=== PATIENT | female | born 1990 | race Caucasian/White ===

== ENCOUNTER 2019-05-07 07:14 | Emergency (ER) | payer BC, SELFPAY ==
[2019-05-07 07:16] VITALS: BP 127/88; PULSE 114; RESP 18; TEMP 36.6; O2SAT 100; BMI 16.6
--- NOTE | 2019-05-07 07:22 | ED_ITS ---
HPI - Nausea/Vomiting/Diarrhea General: Chief complaint: Nausea/Vomiting/Diarrhea Stated complaint: and cannot keep food/ water down Time Seen by Provider: 05/07/19 07:16 Source: patient Mode of arrival: ambulatory Limitations: no limitations History of Present Illness: HPI Narrative: 29-year-old female comes in today for complaints of nausea and vomiting. This is patient's second with 1 successful delivery. Patient reports persistent vomiting that was not controlled with promethazine. Patient has had problems with vomiting during her first . Patient is 8 weeks along in this . Patient denies any other medical problems or concerns. Associated nausea: Yes Associated symtoms: Reports nausea Review of Systems General: Reports: 10 or more systems reviewed and unremarkable except in HPI and below GI: Reports: nausea and vomiting : Reports: vaginal discharge and other (8 weeks ) PFSH ED PFSH: Statuses (acute, chronic, etc) shown below reflect problem list status as previously entered and may not be historically accurate Social History Smoking and tobacco status: never smoked Physical Exam Const: COMMON NORMALS: no apparent distress and oriented x3 GENERAL APPEARANCE: cooperative HENMT: COMMON NORMALS: normocephalic, external ears normal, EAC's normal, TM's normal bilaterally and external nose normal HEAD & SCALP: normal to inspection and normocephalic FACE & SINUS: normal facial exam NOSE: external nose normal GENERAL EAR: hearing not grossly impaired EXTERNAL EAR: Yes external ears normal EXTERNAL AUDITORY CANAL: EAC's normal TYMPANIC MEMBRANE: TM's normal bilaterally MOUTH: oral and palatal mucosa normal THROAT: posterior oropharynx normal Eye: COMMON NORMALS: PERRL and EOMs intact bilaterally PUPIL: Yes PERRL Neck/C-Spine: COMMON NORMALS: full ROM and no lymphadenopathy Lymph: LYMPHATIC: no lymphedema noted Chest: COMMONS NORMALS: inspection of chest normal and palpation of chest normal Resp: COMMON NORMALS: normal respiratory effort and clear to auscultation bilaterally AUSCULTATION: clear to auscultation bilaterally Cardio: COMMON NORMALS: regular rate and regular rhythm RATE: regular rate RHYTHM: regular rhythm GI: COMMON NORMALS: normal to inspection, nondistended, normoactive bowel sounds and non-tender : COMMON NORMALS: Yes no CVA tenderness BLADDER/KIDNEY EXAM: Yes no CVA tenderness EXTERNAL FEMALE EXAM: Yes normal appearance of the urethra SPECULUM EXAM - VAGINA: No vaginal bleeding and Yes vaginal tenderness OB/EXTERNAL & SPECULUM: external exam normal; No vaginal bleeding Back/Pelvis: COMMON NORMALS: no CVA tenderness and thoracic and lumbar spine normal to inspection Extremity: COMMON NORMALS: normal to inspection GENERAL: No edema Neuro: COMMON NORMALS: oriented x3, moves all extremities and no focal motor deficits Psych: COMMON NORMALS: mental status grossly normal and cooperative Skin: COMMON NORMALS: no rashes or lesions noted GENERAL SKIN EXAM: no rashes or lesions noted Course ED course: 816, patient has some improvement in nausea and vomiting, requests medication for anxiety, continues to have some nausea. wjw 0905, patient appears much better with improved anxiety, and over all symptoms. Discussed with patient elevated WBC count, patient reports that she has an elevated wbc count usually that has been linked with HPV that she was told. wjw 0915, RH typing negative, due to vaginal discharge and blood in urine will cover with Rhogam for protection of . Discussed treatment with Antibiotic for cystitis due to blood in urine and leukocytosis. wjw Vital Signs: Vital signs: Vital Signs Temperature 97.9 F 05/07/19 07:16 Pulse Rate 89 05/07/19 10:37 Respiratory Rate 16 05/07/19 10:37 Blood Pressure 106/65 05/07/19 10:37 Pulse Oximetry 100 05/07/19 10:32 MDM - Nausea/Vomiting/Diarrhea MDM Narrative: Medical decision making narrative: Patient comes in today for persistent nausea and vomiting for the last 2 to 3 days. Patient is 8 weeks. Patient is worried that she may be losing her baby due to previous similar instance in a previous miscarriage. Exam notes abdomen soft nontender skin is warm and dry color is pink. Vaginal exam was normal. No signs of bleeding was noted. Differential diagnosis includes threatened , hyperemesis gravidarum, dehydration, UTI, gastroenteritis. Laboratory values signified some elevation in white blood cells, dehydration, and negative Rh typing. Patient was treated with medication and fluids with improvement in overall symptoms. Patient was medicated with RhoGam for Rh typing and positive blood in urine and vaginal swabs. 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 Lab Data: Labs: Lab Results 05/07/19 05/07/19 05/07/19 Range/Units 07:30 07:30 08:25 WBC 25.5 H (4.0-10.0) 10^3/ uL RBC 5.04 (4.1-5.3) 10^6/u L Hgb 14.2 (11.5-15.3) g/dL Hct 43.5 (37.0-47.0) % MCV 86.3 (81-99) fL MCH 28.2 (28.0-34.0) pg MCHC 32.6 (30.0-36.0) g/dL RDW 12.1 (12.1-15.1) % Plt Count 578 H (130-400) 10^3/c mm MPV 10.2 (7.4-10.4) fL Neut % (Auto) 83.1 % Lymph % (Auto) 10.4 % Kimble % (Auto) 5.0 % Eos % (Auto) 0.7 % Baso % (Auto) 0.2 % Neut # (Auto) 21.2 H (1.8-7.7) 10^3/u L Lymph # (Auto) 2.7 (0.8-4.8) 10^3/u L Kimble # (Auto) 1.3 H (0.2-0.9) 10^3/u L Eos # (Auto) 0.2 (0.0-0.8) 10^3/u L Baso # (Auto) 0.0 (0.0-0.1) 10^3/u L Nucleated RBC % (a uto) 0 % Nucleated RBCs # 0.0 /100WBC Sodium 139 (136-145) mmol/L Potassium 3.7 (3.5-5.1) mmol/L Chloride 103 (98-107) mmol/L Carbon Dioxide 21 L (22-29) mmol/L Anion Gap 18.7 (5-19) BUN 6 (6-20) mg/dL Creatinine 0.5 (0.5-0.9) mg/dL GFR Calculation 144.9 H (90-130) mL/min Glucose 137 H (74-109) mg/dL Calcium 10.5 H (8.6-10.0) mg/Dl Total Bilirubin 0.5 (0.15-1.2) mg/dL AST 27 (0-32) U/L ALT 30 (0-33) U/L Alkaline Phosphata se 82 (35-105) IU/L Total Protein 7.3 (6.6-8.7) g/dL Albumin 5.0 (3.5-5.2) g/dL Globulin 2.3 (1.3-4.6) g/dL Lipase 19 (13-60) U/L Urine Color Yellow (Yellow) Urine Appearance Clear (CLEAR) Urine pH 6.5 (5-7) Ur Specific Gravit y 1.020 (1.005-1.030) Urine Protein 1+ H (Negative) Urine Glucose (UA) Norm (Normal) Urine Ketones 1+ H (Negative) Urine Occult Blood 2+ H (Negative) Urine Nitrate Negative (Negative) Urine Bilirubin Neg (NEGATIVE) Urine Urobilinogen Norm (Negative) mg/dL Ur Leukocyte Xiao ase Negative (Negative) Urine RBC 0-4 H (0-2) /hpf Urine WBC None (0-5) /hpf Ur Squamous Epith Cells 15-25 H (0-5) Urine Bacteria 2+ H (NONE) Blood Type Antibody Screen 05/07/19 05/07/19 Range/Units 08:29 08:29 WBC (4.0-10.0) 10^3/ uL RBC (4.1-5.3) 10^6/u L Hgb (11.5-15.3) g/dL Hct (37.0-47.0) % MCV (81-99) fL MCH (28.0-34.0) pg MCHC (30.0-36.0) g/dL RDW (12.1-15.1) % Plt Count (130-400) 10^3/c mm MPV (7.4-10.4) fL Neut % (Auto) % Lymph % (Auto) % Kimble % (Auto) % Eos % (Auto) % Baso % (Auto) % Neut # (Auto) (1.8-7.7) 10^3/u L Lymph # (Auto) (0.8-4.8) 10^3/u L Kimble # (Auto) (0.2-0.9) 10^3/u L Eos # (Auto) (0.0-0.8) 10^3/u L Baso # (Auto) (0.0-0.1) 10^3/u L Nucleated RBC % (a uto) % Nucleated RBCs # /100WBC Sodium (136-145) mmol/L Potassium (3.5-5.1) mmol/L Chloride (98-107) mmol/L Carbon Dioxide (22-29) mmol/L Anion Gap (5-19) BUN (6-20) mg/dL Creatinine (0.5-0.9) mg/dL GFR Calculation (90-130) mL/min Glucose (74-109) mg/dL Calcium (8.6-10.0) mg/Dl Total Bilirubin (0.15-1.2) mg/dL AST (0-32) U/L ALT (0-33) U/L Alkaline Phosphata se (35-105) IU/L Total Protein (6.6-8.7) g/dL Albumin (3.5-5.2) g/dL Globulin (1.3-4.6) g/dL Lipase (13-60) U/L Urine Color (Yellow) Urine Appearance (CLEAR) Urine pH (5-7) Ur Specific Gravit y (1.005-1.030) Urine Protein (Negative) Urine Glucose (UA) (Normal) Urine Ketones (Negative) Urine Occult Blood (Negative) Urine Nitrate (Negative) Urine Bilirubin (NEGATIVE) Urine Urobilinogen (Negative) mg/dL Ur Leukocyte Xiao ase (Negative) Urine RBC (0-2) /hpf Urine WBC (0-5) /hpf Ur Squamous Epith Cells (0-5) Urine Bacteria (NONE) Blood Type A Negative A Negative Antibody Screen Negative Imaging Data^: US: My impression: normal us pelvic, FHR 167, gest estimate 8wks 6 days Radiologist's impression: single uterine , FHR 167, est. gestation 8wks 6 days Discharge Plan Discharge Patient Disposition: Home, Self-Care Clinical Impression: Hyperemesis gravidarum, Dehydration, Vaginal bleeding in patient at less than 20 weeks gestation Condition: Stable Prescriptions: New meclizine 25 mg tablet 25 mg PO TID Qty: 30 RF: 0 ondansetron 4 mg tablet,disintegrating 4 mg PO Q6H PRN (Reason: nausea and vomiting) Qty: 14 RF: 0 Bactrim DS 800-160 mg tablet 1 tab PO Q12H 7 Days Qty: 14 RF: 0 No Action 28 mg iron- 800 mcg Tablet 1 tab PO DAILY RF: 0 Discharge Orders: Discharge Order (Routine); Ordered 05/07/19 Ordered By: Elver Bonilla Referrals: Leana Pace DO [Primary Care Provider] - Discharge Diet: Usual diet Discharge Activity: Increase activity as tolerated Patient Instructions: Hyperemesis Gravidarum (ED) Activity Restrictions/Additional Instructions: Keep hydrated Drink sips of fluid routinely Light diet Avoid spicy, greasy or acidic foods Follow-up with OB-ELECTRIC FREIGHT CAR OPERATOR in one week Return to ER for high fever or worsening symptoms Discharge Date/Time: 05/07/19 10:52 Coding Level of Care Code ED Account Liaison for Maite Garcia Exam Problem Focused
[2019-05-07] MEDS: metoclopramide 5 mg/mL SDV 2 mL 10 MG IVP (07:31)
[2019-05-07] MEDS: sodium chloride 0.9% 1,000 ML 999 ML IV (07:31)
[2019-05-07] MEDS: diphenhydrAMINE 50 mg/mL SDV 1mL 25 MG IVP (07:31)
[2019-05-07 08:03] LABS: Basophils % 0.2 %; Eosinophils # 0.2 10^3/uL (0.0-0.8); Eosinophils % 0.7 %; Hematocrit 43.5 % (37.0-47.0); Hemoglobin 14.2 g/dL (11.5-15.3); Lymphocytes # 2.7 10^3/uL (0.8-4.8); Lymphocytes % 10.4 %; Mean Corpuscular HGB Conc 32.6 g/dL (30.0-36.0); Mean Corpuscular Hemoglobin 28.2 pg (28.0-34.0); Mean Corpuscular Volume 86.3 fL (81-99); Mean Platelet Volume 10.2 fL (7.4-10.4); Monocytes # 1.3 10^3/uL (0.2-0.9); Neutrophils # 21.2 10^3/uL (1.8-7.7); Neutrophils % 83.1 %; Nucleated Red Blood Cells % 0 %; Platelet Count 578 10^3/cmm (130-400); Red Blood Count 5.04 10^6/uL (4.1-5.3); Red Cell Distribution Width 12.1 % (12.1-15.1); White Blood Count 25.5 10^3/uL (4.0-10.0)
--- NOTE | 2019-05-07 08:13 | US_ITS ---
WS: [id number] OB ultrasound, 05/07/2019 Clinical Data: viability, 8 weeks, vaginal discharge Comparison: OB ultrasound, 04/23/2019. Findings: There is a single interuterine . The cervix measures 3.70 cm and is closed. heart rate is 167 beats per minute. There is a yolk sac present. The crown-rump length measured 2.2 cm The estimated gestational age 8w6d is with an ALKA of approximately 12/11/2019. The left ovary measured 1.5 cm x 2.4 cm x 2.3 cm. The right ovary measured 1.2 cm x 2.4 cm x 3.1 cm. No ovarian cyst or masses are seen. US/US OB lmt with transvaginal Impression: 1. Single interuterine . 2. Estimated gestational age of 8w6d with an ALKA of 12/11/2019. 3. heart rate 167 beats per minute.
[2019-05-07 08:18] LABS: Alanine Aminotransferase 30 U/L (0-33); Alkaline Phosphatase 82 IU/L (35-105); Anion Gap 18.7 (5-19); Aspartate Amino Transferase 27 U/L (0-32); Blood Urea Nitrogen 6 mg/dL (6-20); Calcium 10.5 mg/Dl (8.6-10.0); Carbon Dioxide 21 mmol/L (22-29); Chloride 103 mmol/L (98-107); Globulin 2.3 g/dL (1.3-4.6); Glomerular Filtration Rate 144.9 mL/min (90-130); Glucose 137 mg/dL (74-109); Lipase 19 U/L (13-60); Potassium 3.7 mmol/L (3.5-5.1); Sodium 139 mmol/L (136-145); Total Bilirubin 0.5 mg/dL (0.15-1.2); Total Protein 7.3 g/dL (6.6-8.7)
[2019-05-07] MEDS: ondansetron 2 mg/ML SDV 2 mL 4 MG IVP (08:23)
--- NOTE | 2019-05-07 08:24 | PC.NURSE ---
Ultrasound in room with pt.
--- NOTE | 2019-05-07 08:27 | PC.NURSE ---
portable ultrasound at bedside
[2019-05-07] MEDS: LORazepam 0.5 mg Tablet 0.25 MG PO (08:30)
[2019-05-07 08:55] LABS: Bilirubin Urine Neg (NEGATIVE); Blood Urine 2+ (Negative); Glucose Urine UA Norm (Normal); Ketones Urine 1+ (Negative); Leukocyte Esterase Urine Negative (Negative); Nitrate Urine Negative (Negative); Protein Urine 1+ (Negative); Urine Appearance Clear (CLEAR); Urine Color Yellow (Yellow); Urobilinogen Urine Norm (Negative); pH Urine 6.5 (5-7)
[2019-05-07 09:02] LABS: Add Urine Culture? No; Bacteria Urine 2+; RBC Urine 0-4 /hpf (0-2); Squamous Epithelial Cell Urine 15-25 (0-5)
[2019-05-07 09:04] VITALS: BP 105/65; PULSE 85; O2SAT 99
--- NOTE | 2019-05-07 09:05 | PC.NURSE ---
nurse literacy coach PA for pelvic exam and vaginal swab collection. Whole time 15 minutes
[2019-05-07] MEDS: cefTRIAXone 1,000 MG in sodium chloride 0.9% (plus) 50 ML 100 MG IV (09:17)
[2019-05-07 10:23] VITALS: BP 107/72; PULSE 87; O2SAT 100
[2019-05-07 10:32] VITALS: BP 106/65; PULSE 91; O2SAT 100
[2019-05-07 10:37] VITALS: BP 106/65; PULSE 89; RESP 16
--- NOTE | 2019-05-10 15:01 | DCPLANNER ---
international manager had message to speak with patient about getting an OB physician. international manager spoke with patient, and patient asked if she could call caseworker intake back on her break due to her being at work. international manager is waiting for patient to return machine adjuster leader case trim phone call to discuss an OB physician.
== END 2019-05-07 10:52 | disposition home or self-care (01) ==
PROVIDERS: Emergency Provider Nurse Practitioner Family; Family Provider Family Medicine; PCP Family Medicine
DX: O21.1 Hyperemesis gravidarum with metabolic disturbance (principal); Z3A.08 8 weeks gestation of pregnancy; O20.9 Hemorrhage in early pregnancy, unspecified; Z29.13 Encounter for prophylactic Rho(D) immune globulin
CPT/HCPCS: 36415; 76815; 76817; 80053; 81001; 83690; 85025; 86850; 86900; 87070; 87210; 87491; 87591; 87661; 90384; 96360; 96365; 96374; 99283; A9270; E0352; J0696; J1200; J2405; J2765; J7030

== ENCOUNTER 2019-05-27 15:04 | Outpatient (CLI) | payer SELFPAY ==
[2019-05-27 15:15] VITALS: BMI 16.9
[2019-05-27] MEDS: dextrose 5%-lactated ringers 1,000 ML 999 ML IV (15:58)
[2019-05-27 16:00] VITALS: BP 114/65; PULSE 70; RESP 18; TEMP 36.8
[2019-05-27 16:31] VITALS: BP 116/68; PULSE 87
[2019-05-27 17:02] VITALS: BP 119/71; PULSE 86
[2019-05-27] MEDS: dextrose 5%-lactated ringers 1,000 ML 200 ML IV (17:12)
[2019-05-27 17:36] VITALS: BP 118/64; PULSE 85
[2019-05-27 18:01] VITALS: BP 122/68; PULSE 92
[2019-05-27 18:31] VITALS: BP 0/0
== END 2019-05-27 18:33 | disposition home or self-care (01) ==
LOC: OPOB 15:19 → OBGYN 18:20 → OPOB 05-28 08:58
PROVIDERS: Family Provider Family Medicine; PCP Family Medicine; Visit Provider Family Medicine
DX: O26.899 Other specified pregnancy related conditions, unspecified trimester (principal); Z3A.00 Weeks of gestation of pregnancy not specified; I95.9 Hypotension, unspecified
CPT/HCPCS: 96360; 96361; 99211

== ENCOUNTER 2019-06-01 21:48 | Emergency (ER) | payer MEDICAID, SELFPAY ==
[2019-06-01 22:12] VITALS: BP 126/66; PULSE 80; RESP 18; TEMP 36.8; O2SAT 99; BMI 16.2
--- NOTE | 2019-06-01 22:34 | ED_ITS ---
Entered by Rose Marie Haynes, acting as scribe for Marisa Villegas MD Jun 01, 2019 21:48 HPI - Abdominal Pain General: Chief Complaint: Abdominal Pain Stated Complaint: preg bleeding/cramping 13 weeks Time Seen by Provider: 06/01/19 22:32 Source: patient and family Mode of arrival: ambulatory History of Present Illness: HPI narrative: 29 y/o female presents to the ED with complaint of bleeding that started around 2130 this evening. Pt states she thinks she is having a miscarriage. Pt states this is her second . She had a miscarriage at 5 months with her first . She was seen here last week and given IV fluids due to low BP. MD elicited complaint: abdominal pain (bleeding) Pertinent past history: other (miscarriage) Onset (ago): hour(s) (1) Pain Consistency: constant Severity: similar to previous episodes Quality: cramping Exacerbating factors: movement Associated Symptoms: Denies chills, diarrhea, dysuria, fever(s), nausea and vomiting Review of Systems Const: Denies: fever, chills, body aches or change in appetite Eyes: Denies: blurry vision or eye discomfort ENMT: Denies: throat pain or dental pain Card: Denies: chest pain Resp: Denies: shortness of breath GI: Reports: abdominal pain; Denies: nausea, vomiting or diarrhea : Reports: vaginal bleeding; Denies: painful urination Musc: Denies: neck pain or back pain Skin/Breast: Denies: rash Neuro: Denies: headache Psych: Denies: depression Shane/Lymph: Denies: easy bruising All/Imm: Denies: hives PFSH ED PFSH: Statuses (acute, chronic, etc) shown below reflect problem list status as previously entered and may not be historically accurate Social History Smoking and tobacco status: never smoked Physical Exam Const: COMMON NORMALS: no apparent distress and oriented x3; negative for well nourished NUTRITIONAL APPEARANCE: thin HENMT: COMMON NORMALS: normocephalic and head/scalp atraumatic HEAD & SCAL P: normocephalic and atraumatic Eye: COMMON NORMALS: PERRL and EOMs intact bilaterally PUPIL: Yes PERRL Neck/C-Spine: COMMON NORMALS: full ROM and supple Chest: COMMONS NORMALS: inspection of chest normal and palpation of chest normal Resp: COMMON NORMALS: normal respiratory effort, no retractions, no use of accessory muscles and clear to auscultation bilaterally AUSCULTATION: clear to auscultation bilaterally Cardio: COMMON NORMALS: regular rate, regular rhythm and no murmurs RATE: regular rate RHYTHM: regular rhythm GI: COMMON NORMALS: normal to inspection, nondistended, normoactive bowel sounds, soft to palpation, non-tender and no masses PALPATION: Yes soft : OTHER: Cervix is closed. She does have moderate amount of blood pooling in vaginal vault. No clots noted Extremity: COMMON NORMALS: normal to inspection and full ROM Neuro: COMMON NORMALS: oriented x3, moves all extremities and no focal motor deficits Psych: COMMON NORMALS: mental status grossly normal, thought process normal and cooperative THOUGHT PROCESS: normal thought process Skin: COMMON NORMALS: no rashes or lesions noted and no wounds GENERAL SKIN EXAM: no rashes or lesions noted Course Vital Signs: Vital signs: Vital Signs Temperature 98.2 F 06/01/19 22:12 Pulse Rate 80 06/01/19 22:12 Respiratory Rate 18 06/01/19 22:12 Blood Pressure 126/66 06/01/19 22:12 Pulse Oximetry 99 06/01/19 22:12 MDM - Abdominal Pain MDM Narrative: Medical decision making narrative: Patient presents here with a threatened miscarriage. Patient's pelvic exam did show some bleeding but has cervical loss is close. Bedside ultrasound showed IUP consistent with dates with heart rate 152. Patient is stable for discharge and is to follow-up with her OB in 1 to 3 days. Patient is to return if worsening. She understands and agrees to plan. We will give her dose of RhoGam as her blood type is negative. Discharge Plan Discharge Patient Disposition: Home, Self-Care Clinical Impression: Threatened miscarriage Condition: Stable Prescriptions: No Action PNV cmb#[id number] fumarate-FA [] 28 mg iron- 800 mcg Tablet 1 tab PO DAILY RF: 0 meclizine 25 mg tablet 25 mg PO TID Qty: 30 RF: 0 ondansetron 4 mg tablet,disintegrating 4 mg PO Q6H PRN (Reason: nausea and vomiting) Qty: 14 RF: 0 Discharge Orders: Discharge Order (Routine); Ordered 06/01/19 Ordered By: Marisa Villegas Referrals: Bertha Beltran MD [Primary Care Provider] - 1-3 days Leana Pace DO [Family Provider] - Discharge Diet: Advance as tolerated Discharge Activity: Resume usual activity Patient Instructions: Threatened Miscarriage (ED) Coding Level of Care Code ED Shape Hand for Chg Fwd Exam Problem Focused The documentation recorded by the [place] rosales Ashley, accurately reflects the service I personally performed and the decisions made by Bakari reyes Korby, MD Jun 01, 2019 21:48
--- NOTE | 2019-06-01 22:58 | PC.NURSE ---
Patient Assessment Patient reports that she is 13 weeks and began bleeding at 2130. Patient reports moderate bright red bleeding. Patient is . Patient reports abdominal cramping.
[2019-06-02 00:02] VITALS: BP 102/63; PULSE 69; RESP 16; TEMP 36.7
[2019-06-02 00:07] VITALS: BP 105/71; PULSE 68; RESP 16; TEMP 36.8; O2SAT 97
== END 2019-06-02 00:09 | disposition home or self-care (01) ==
PROVIDERS: Emergency Provider Emergency Medicine; Family Provider Family Medicine; PCP Family Medicine
DX: O20.0 Threatened abortion (principal); Z3A.13 13 weeks gestation of pregnancy; Z29.13 Encounter for prophylactic Rho(D) immune globulin
CPT/HCPCS: 36430; 86850; 86900; 90384; 99281; 99283

== ENCOUNTER → 2019-07-28 14:35 | Outpatient (BNVA) | payer BC, SELFPAY | PROVIDERS: Family Provider Family Medicine; PCP Family Medicine; Visit Provider Family Medicine | DX: R05 Cough (principal); R50.9 Fever, unspecified | CPT/HCPCS: 87071; 87400; 87880 ==

== ENCOUNTER 2019-07-29 15:03 | Outpatient (REF) | payer BC, SELFPAY | END 2019-07-29 15:04 | disposition home or self-care (01) | LOC: LAB 15:03 | PROVIDERS: Family Provider Family Medicine; PCP Family Medicine; Visit Provider Pediatrics | DX: R05 Cough (principal); R50.9 Fever, unspecified; J02.9 Acute pharyngitis, unspecified | CPT/HCPCS: 87635 ==

== ENCOUNTER 2019-08-04 04:50 | Emergency (ER) | payer OTHER, MEDICAID, SELFPAY ==
[2019-08-04 04:58] VITALS: BP 102/43; PULSE 80; RESP 16; TEMP 36.9; O2SAT 98; BMI 17.9
--- NOTE | 2019-08-04 05:01 | ED_ITS ---
HPI - Nausea/Vomiting/Diarrhea General: Chief complaint: Nausea/Vomiting/Diarrhea Stated complaint: n/v Time Seen by Provider: 08/04/19 04:59 Source: patient Mode of arrival: ambulatory Limitations: no limitations History of Present Illness: HPI Narrative: 29-year-old female is currently 21 weeks has had hyperemesis gravidarum throughout her . Patient states she has had vomiting over the last 24 hours and states she is unable to keep anything down needs IV fluids. She denies any abdominal pain. She denies any vaginal bleeding. She denies any worsening or improving factors. MD elicited complaint: vomiting Associated nausea: Yes Associated symtoms: Reports nausea; Denies chest pain, dysuria or headache(s) Review of Systems Const: Denies: fever, chills, body aches or change in appetite Eyes: Denies: blurry vision or eye discomfort ENMT: Denies: throat pain or dental pain Card: Denies: chest pain Resp: Denies: shortness of breath GI: Reports: nausea and vomiting : Denies: painful urination Musc: Denies: neck pain or back pain Skin/Breast: Denies: rash Neuro: Denies: headache Psych: Denies: depression Shane/Lymph: Denies: easy bruising All/Imm: Denies: hives PFSH ED PFSH: Social History Smoking and tobacco status: never smoked Physical Exam Const: COMMON NORMALS: no apparent distress, oriented x3 and healthy appearing HENMT: COMMON NORMALS: normocephalic and head/scalp atraumatic HEAD & SCALP: normocephalic and atraumatic Eye: COMMON NORMALS: PERRL and EOMs intact bilaterally PUPIL: Yes PERRL Neck/C-Spine: COMMON NORMALS: full ROM and supple Chest: COMMONS NORMALS: inspection of chest normal and palpation of chest normal Resp: COMMON NORMALS: normal respiratory effort, no retractions, no use of accessory muscles and clear to auscultation bilaterally AUSCULTATION: clear to auscultation bilaterally Cardio: COMMON NORMALS: regular rate, regular rhythm and no murmurs RATE: regular rate RHYTHM: regular rhythm GI: COMMON NORMALS: normal to inspection, nondistended, normoactive bowel sounds, soft to palpation, non-tender and no masses PALPATION: Yes soft OTHER: gravid uterus Extremity: COMMON NORMALS: normal to inspection and full ROM Neuro: COMMON NORMALS: oriented x3, moves all extremities and no focal motor deficits Psych: COMMON NORMALS: mental status grossly normal, thought process normal and cooperative THOUGHT PROCESS: normal thought process Skin: COMMON NORMALS: no rashes or lesions noted and no wounds GENERAL SKIN EXAM: no rashes or lesions noted Course Vital Signs: Vital signs: Vital Signs Temperature 98.5 F 08/04/19 04:58 Pulse Rate 78 08/04/19 06:17 Respiratory Rate 16 08/04/19 06:17 Blood Pressure 118/72 08/04/19 06:17 Pulse Oximetry 99 08/04/19 06:17 MDM - Nausea/Vomiting/Diarrhea MDM Narrative: Medical decision making narrative: pt presents here with hyperemesis gravidarium. She feels much improved after iv fluids and reglan. pt is stable for discharge and is to follow up with pcp in 3-5 days and return if worsening. Lab Data: Labs: Lab Results 08/04/19 Range/Units 05:45 Urine Color Yellow (Yellow) Urine Appearance Turbid (CLEAR) Urine pH 7 (5-7) Ur Specific Gravit y 1.010 (1.005-1.030) Urine Protein Neg (Negative) Urine Glucose (UA) Norm (Normal) Urine Ketones Negative (Negative) Urine Blood Neg (Negative) Urine Nitrate Negative (Negative) Urine Bilirubin Neg (NEGATIVE) Urine Urobilinogen Norm (Negative) mg/dL Ur Leukocyte Xiao ase 2+ H (Negative) Urine RBC 0-4 H (0-2) /hpf Urine WBC 5-10 H (0-5) /hpf Ur Squamous Epith Cells 25-40 H (0-5) Amorphous Sediment 1+ Urine Bacteria 2+ H (NONE) Urine Mucus 1+ Discharge Plan Discharge Patient Disposition: Home, Self-Care Clinical Impression: Hyperemesis gravidarum Condition: Stable Prescriptions: New Reglan 10 mg tablet 10 mg PO Q6H PRN (Reason: nausea and vomiting) Qty: 20 RF: 0 No Action PNV cmb#95-ferrous fumarate-FA [] 28 mg iron- 800 mcg Tablet 1 tab PO DAILY RF: 0 ondansetron 4 mg tablet,disintegrating 4 mg PO Q6H PRN (Reason: nausea and vomiting) Qty: 14 RF: 0 Discharge Orders: Discharge Order (Routine); Ordered 08/04/19 Ordered By: Marisa Villegas Referrals: Bertha Beltran MD [Primary Care Provider] - 4-7 days Leana Pace DO [Family Provider] - Discharge Diet: Advance as tolerated Discharge Activity: Resume usual activity Patient Instructions: Hyperemesis Gravidarum (ED) Stand Alone Forms: Work/School Release Discharge Date/Time: 08/04/19 06:19 Coding Level of Care Code ED Assistant Chief Train Dispatcher for Chg Fwd Exam Comprehensive
[2019-08-04] MEDS: metoclopramide 5 mg/mL SDV 2 mL 10 MG IVP (05:20)
[2019-08-04] MEDS: diphenhydrAMINE 50 mg/mL SDV 1mL IVP (05:20)
[2019-08-04] MEDS: sodium chloride 0.9% 1,000 ML 999 ML IV ×2 (05:21→05:27)
[2019-08-04 06:11] LABS: Add Urine Microscopic? YES; Bilirubin Urine Neg (NEGATIVE); Blood Urine Neg (Negative); Glucose Urine UA Norm (Normal); Ketones Urine Negative (Negative); Leukocyte Esterase Urine 2+ (Negative); Nitrate Urine Negative (Negative); Protein Urine Neg (Negative); Urine Appearance Turbid (CLEAR); Urine Color Yellow (Yellow); Urobilinogen Urine Norm (Negative); pH Urine 7 (5-7)
[2019-08-04 06:13] LABS: RBC Urine 0-4 /hpf (0-2)
[2019-08-04 06:14] LABS: Add Urine Culture? No; Amorphous Sediment Urine 1+; Bacteria Urine 2+; Mucus Urine 1+; Squamous Epithelial Cell Urine 25-40 (0-5)
[2019-08-04 06:17] VITALS: BP 118/72; PULSE 78; RESP 16; O2SAT 99
--- NOTE | 2019-08-06 11:47 | DCPLANNER ---
senior online marketing manager called to check on patient after recent ER visit. Patient stated that she is feeling much better, patient stated that she has to find a new primary care physician due to new insurance with her husbands employer. senior online marketing manager offered to send patient the financial services sales representative application for the hospital to fill out and turn in, but patient stated that her husbands employment will back date the insurance to the date of marriage. senior online marketing manager told patient to bring her insurance cards to the hospital so that they can apply it towards her hospital visit. senior online marketing manager also told patient that if she needed help in getting established with a primary care physician to let shoe caser know and shoe caser would be happy to help her.
== END 2019-08-04 06:19 | disposition home or self-care (01) ==
PROVIDERS: Emergency Provider Emergency Medicine; Family Provider Family Medicine; PCP Family Medicine
DX: O21.0 Mild hyperemesis gravidarum (principal); Z3A.21 21 weeks gestation of pregnancy
CPT/HCPCS: 12345; 81001; 96361; 96374; 96375; 99283; J1200; J2765; J7030

== ENCOUNTER 2019-08-25 11:30 | Outpatient (CLI) | payer OTHER, MEDICAID, SELFPAY ==
[2019-08-25 11:37] VITALS: BMI 18.5
[2019-08-25 11:45] VITALS: BP 119/59; PULSE 76; RESP 16; TEMP 36.5
--- NOTE | 2019-08-25 11:56 | US_ITS ---
WS: [id number] Obstetrical ultrasound, limited. HISTORY: Bleeding at 24 weeks. COMPARISON: 07/27/2019. Transabdominal and translabial imaging of the cervix is performed. On the translabial imaging the cer vix is well visualized and measures 3.2 cm in length. Mucous plug appears intact normal amount of amn iotic fluid. Placenta is posterior and fundal with no previa or abruption. heart rate at 150 bpm. US/US OB limited [id number] IMPRESSION: 1. Normal cardiac activity. 2. No placenta previa or abruption. 3. Intact cervix.
[2019-08-25] MEDS: lactated ringers 1,000 ML 999 ML IV (13:56)
[2019-08-25 15:36] VITALS: BP 121/59; PULSE 77; RESP 17; TEMP 36.5
[2019-08-26 09:20] VITALS: BP 0/0
[2019-08-26 09:21] VITALS: BP 95/42; PULSE 75
== END 2019-08-25 15:10 | disposition home or self-care (01) ==
LOC: OPOB 11:34 → OBGYN 15:01
PROVIDERS: Family Provider Family Medicine; PCP Family Medicine; Visit Provider Family Medicine
DX: O46.90 Antepartum hemorrhage, unspecified, unspecified trimester (principal); Z3A.00 Weeks of gestation of pregnancy not specified
CPT/HCPCS: 76815; 99211

== ENCOUNTER 2019-09-18 03:59 | Outpatient (CLI) | payer OTHER, MEDICAID, SELFPAY ==
[2019-09-18 04:00] VITALS: RESP 18; TEMP 36.7
[2019-09-18 04:36] VITALS: BP 117/83; RESP 18
[2019-09-18] MEDS: ondansetron 2 mg/ML SDV 2 mL 4 MG IVP (05:35)
[2019-09-18] MEDS: acetaminophen 500 mg Tablet 1000 MG PO (05:36)
[2019-09-18] MEDS: lactated ringers 1,000 ML 999 ML IV (05:37)
[2019-09-18 05:45] LABS: Bacteria Urine 2+; Bilirubin Urine Neg (NEGATIVE); Blood Urine 2+ (Negative); Glucose Urine UA Norm (Normal); Ketones Urine Negative (Negative); Leukocyte Esterase Urine 2+ (Negative); Nitrate Urine Negative (Negative); Protein Urine Neg (Negative); RBC Urine 0-4 /hpf (0-2); Squamous Epithelial Cell Urine 15-25 (0-5); Urine Appearance Cloudy (CLEAR); Urine Color Yellow (Yellow); Urobilinogen Urine Norm (Negative); WBC Urine 25-40 /hpf (0-5); pH Urine 6 (5-7)
[2019-09-18 05:46] LABS: Add Urine Culture? Yes
[2019-09-18 06:05] VITALS: BMI 18.9
[2019-09-18 06:56] VITALS: BP 117/72; PULSE 74
[2019-09-18] MEDS: nitrofurantoin SR (BID) 100 mg Capsule PO (07:00)
--- NOTE | 2019-09-18 07:27 | PC.NURSE ---
[facility] called at this time and left message on voicemail with prescription Macrobid 100mg BID x7 days #13 no refil. Patient had first dose given here per doctors instructions
== END 2019-09-18 07:05 | disposition home or self-care (01) ==
LOC: OPOB 04:00 → OBGYN 04:01
PROVIDERS: Family Provider Family Medicine; PCP Family Medicine; Visit Provider Family Medicine
DX: O26.899 Other specified pregnancy related conditions, unspecified trimester (principal); Z3A.00 Weeks of gestation of pregnancy not specified; R10.9 Unspecified abdominal pain
CPT/HCPCS: 59025; 81001; 87086; 96375; 99211; J2405

== ENCOUNTER 2019-09-22 12:10 | Outpatient (CLI) | payer OTHER, MEDICAID, SELFPAY ==
[2019-09-22 13:00] VITALS: BP 125/80; PULSE 80; RESP 18
[2019-09-22 13:11] VITALS: BMI 19.7
== END 2019-09-22 13:19 | disposition home or self-care (01) ==
LOC: OPOB 13:08 → OBGYN 13:09
PROVIDERS: PCP Family Medicine; Visit Provider Family Medicine
DX: O36.8190 Decreased fetal movements, unspecified trimester, not applicable or unspecified (principal); Z3A.00 Weeks of gestation of pregnancy not specified
CPT/HCPCS: 59025; 99211

== ENCOUNTER 2019-09-29 07:30 | Outpatient (CLI) | payer OTHER, MEDICAID, SELFPAY ==
[2019-09-29 09:15] VITALS: BP 120/80; PULSE 60; RESP 18; TEMP 36.8; O2SAT 98
[2019-09-29 09:26] VITALS: BP 120/80; PULSE 60; RESP 18; TEMP 36.8; O2SAT 98
== END 2019-09-29 07:31 | disposition home or self-care (01) ==
LOC: GILAB 07:37
PROVIDERS: PCP Family Medicine; Visit Provider Family Medicine
DX: Z34.80 Encounter for supervision of other normal pregnancy, unspecified trimester (principal); Z3A.00 Weeks of gestation of pregnancy not specified; Z31.82 Encounter for Rh incompatibility status; Z67.91 Unspecified blood type, Rh negative
CPT/HCPCS: 36415; 86850; 86900; 90384; 96372; J2790

== ENCOUNTER 2019-10-19 13:13 | Outpatient (CLI) | payer OTHER, MEDICAID, SELFPAY ==
[2019-10-19] VITALS (29 sets, daily range): BP systolic 0–167; BP diastolic 0–108; PULSE 77–110; RESP 15; TEMP 36.8; BMI 22.4
[2019-10-19] MEDS: betamethasone susp 6 mg/mL 5 mL 12 MG IM (14:03)
[2019-10-19 14:11] LABS: Basophils % 0.2 %; Eosinophils # 0.2 10^3/uL (0.0-0.8); Eosinophils % 1.3 %; Hematocrit 31.1 % (37.0-47.0); Hemoglobin 10.4 g/dL (11.5-15.3); Lymphocytes % 15.2 %; Mean Corpuscular HGB Conc 33.4 g/dL (30.0-36.0); Mean Corpuscular Hemoglobin 29.7 pg (28.0-34.0); Mean Corpuscular Volume 88.9 fL (81-99); Mean Platelet Volume 11.1 fL (7.4-10.4); Monocytes % 7.5 %; Neutrophils # 10.1 10^3/uL (1.8-7.7); Neutrophils % 75.2 %; Nucleated Red Blood Cells % 0 %; Platelet Count 234 10^3/cmm (130-400); White Blood Count 13.4 10^3/uL (4.0-10.0)
[2019-10-19 14:24] LABS: Add Urine Microscopic? YES; Bilirubin Urine Neg (NEGATIVE); Blood Urine Neg (Negative); Glucose Urine UA Norm (Normal); Ketones Urine Negative (Negative); Leukocyte Esterase Urine 2+ (Negative); Nitrate Urine Negative (Negative); Protein Urine 3+ (Negative); Specific Gravity, Urine 1.005 (1.005-1.030); Urine Appearance Clear (CLEAR); Urine Color Yellow (Yellow); Urobilinogen Urine Norm (Negative); pH Urine 7 (5-7)
[2019-10-19 14:26] LABS: Bacteria Urine 1+; Hyaline Casts Urine 0-4
[2019-10-19 14:28] LABS: Add Urine Culture? No
[2019-10-19 14:29] LABS: Uric Acid 7.1 mg/dL (2.4-5.7)
[2019-10-19 14:30] LABS: Alanine Aminotransferase 38 U/L (0-33); Alkaline Phosphatase 156 IU/L (35-105); Anion Gap 14.5 (5-19); Aspartate Amino Transferase 36 U/L (0-32); Blood Urea Nitrogen 14 mg/dL (6-20); Calcium 9.5 mg/dL (8.5-10.5); Carbon Dioxide 24 mmol/L (22-29); Chloride 105 mmol/L (98-107); Globulin 2.3 g/dL (1.3-4.6); Glomerular Filtration Rate 98.3 mL/min (90-130); Glucose 90 mg/dL (65-115); Osmolality Calculated 284 mOsm/kg (285-295); Potassium 4.5 mmol/L (3.5-5.1); Sodium 139 mmol/L (136-145); Total Bilirubin 0.2 mg/dL (0.15-1.2); Total Protein 5.3 g/dL (6.6-8.7)
[2019-10-19 14:50] LABS: Urine Creatinine 97 mg/dL (28-217)
[2019-10-19 15:19] LABS: UPRO/UCREAT Ratio 2.77 mg/mg CR; Urine Protein Random 269 mg/dL
[2019-10-19] MEDS: dextrose 5%-lactated ringers 1,000 ML 125 ML IV (15:59)
[2019-10-19] MEDS: magnesium sulfate premix 4 GM/100 ML PREMIX IV (15:59)
[2019-10-19] MEDS: magnesium sulfate premix 20 GM/500 ML BAG IV (16:21)
--- NOTE | 2019-10-19 16:26 | US_ITS ---
WS: [id number] LIMITED OBSTETRICAL ULTRASOUND HISTORY: severe pre-eclampsia COMPARISON: 08/25/2019, 07/27/2019 and 04/23/2019 Presentation: Cephalic. Cervix: Not visualized. Placenta: Posterior and fundal. Grade: 1 HEART: FHR of 136 BPM. measurements: BPD = 8.2 cm = 32w6d HC = 31.0 cm = 34w4d AC = 28.0 cm = 32w1d FL = 6.3 cm = 32w3d HORTENCIA: 13.2 cm EFW: 1991 g; 58 %. AGA by ultrasound: 33w0d ALKA by ultrasound: 12/07/2019 Head circumference is measuring slightly greater then the remaining biometry which could be technical . First trimester EDC of 12/12/2019. Correlates with the EDC of 12/07/2019 obtained today. US/ OB limited [id number] IMPRESSION: 1. Single intrauterine gestation of 33 weeks 0 days and EDC of 12/07/2019. 2. Normal amniotic fluid index. 3. Posterior placenta.
--- NOTE | 2019-10-19 16:38 | PM.TDS ---
Transfer Summary Providers Date of Discharge: 10/19/19 Attending Provider at Transfer: Bertha Beltran MD Primary Care Provider: Bertha Beltran MD Anticipated Date of Transfer: Anticipated date of transfer: 10/19/19 Receiving Facility & Provider: Receiving Provider: [] Receiving facility: [] Diagnoses at Discharge Discharge Diagnosis (1) 32 weeks gestation of : Status: Acute Problem details: Current inpatient ultrasound revealed an HORTENCIA of about 13. Fetus measuring well at 33 weeks 0 days gestation, EFW 4# 6 oz. Vertex presentation. (2) Pre-eclampsia affecting , antepartum: Status: Acute Problem details: Severe. BP's running 160's/100's. Possible early HEELP given the minimally elevated liver enzymes, plts wnl. Patient received a dose of betamethasone around 1400 hrs. She has been started on magnesium 4 g load with 2 g an hour. I contacted the hospitalist OB on-call at [facility] in [place]. Dr. Adams accepted transfer. Pt will go by ground. We will continue Magnesium. Reason for Visit Reason for Visit: pre eclampsia Hospital Course Hospital Course: This is a 29-year-old G2, P0 at 32 weeks 2 days gestation by a 6-week 5-day ultrasound with an ALKA of 12/12/2019 who presented to clinic today for routine follow-up care and was found to have elevated blood pressures and protein in her urine. Her blood pressure in clinic was 148/88 and she was dipping 4+ protein in the office. Her blood pressures usually run on the low side 90s over 60s. In addition this the patient had 11 lb weight gain in 2 weeks (very unusual for her as she had been underweight BMI 14.8 at the beginning of the ). The patient was sent to labor and delivery for further evaluation. In labor and delivery she has continued to have elevated blood pressures on bedrest. These are actually more elevated than they were in clinic, running up to 166/103. Upon arrival she was given a dose of betamethasone around 2 PM. When her labs resulted she was started on magnesium 4 g load then 2 g an hour. Her urine protein creatinine ratio came back at 2.77 mg/mg. Uric acid 7.1. AST and ALT were just minimally elevated at 36 and 38, platelets were good at 234. The patient has had routine care at [facility]. There have been no significant complications of the other than low maternal BMI, suspected anorexia. Mother's weight was as low as 84 pounds. She had a few ER/triage visits requiring IV fluids. She had one L&D triage for bleeding(not noted by nursing) and cramping that resolved with IV fluids. She is known to be Rh- and received RhoGam on 09/29/19. labs: A negative, antibody negative, GC chlamydia negative, drug screen positive for marijuana, GTT 100, hep B surface antigen nonreactive, hep C antibody nonreactive, HIV nonreactive, RPR nonreactive, rubella immune, Pap smear LSIL Physical Exam Const: COMMON NORMALS: no acute distress and alert GENERAL APPEARANCE: cooperative and comfortable ORIENTATION/CONSCIOUSNESS: Yes oriented to person, Yes oriented to place and Yes oriented to time HENMT: COMMON NORMALS: normocephalic, external ears normal and Normal external nose present HEAD & SCALP: normocephalic FACE & SINUS: normal facial exam (Edematous compared to her baseline) NOSE: Normal external nose present EXTERNAL EAR: Yes external ears normal MOUTH: Normal oral and palatal mucosa present Eye: COMMON NORMALS: Equal, round and reactive pupils present and EOMs intact bilaterally PUPIL: Yes Equal, round and reactive pupils present Chest: COMMONS NORMALS: normal inspection of the chest Resp: COMMON NORMALS: No use of accessory muscles and clear to auscultation bilaterally AUSCULTATION: clear to auscultation bilaterally Cardio: COMMON NORMALS: regular rate and regular rhythm RATE: regular rate RHYTHM: regular rhythm GI: COMMON NORMALS: Soft to palpation (gravid) and non-tender PALPATION: Yes Soft to palpation (gravid) Extremity: COMMON NORMALS: no calf tenderness GENERAL: Yes edema (non-pitting bilateral (compared to her baseline)) Neuro: SENSORIUM/ORIENTATION: Yes alert, Yes oriented to person, Yes oriented to place and Yes oriented to time Psych: COMMON NORMALS: mental status grossly normal TS Data Data Completed and Pending: Pending at discharge Category Date Time Status US OB limited 768 15 Stat Ultrasound 10/19/19 16:26 Ordered Labs from last 24 hours 10/19/19 10/19/19 10/19/19 13:35 13:35 13:35 WBC RBC Hgb Hct MCV MCH MCHC RDW Plt Count MPV Neut % (Auto) Lymph % (Auto) Jay % (Auto) Eos % (Auto) Baso % (Auto) Neut # (Auto) Lymph # (Auto) Jay # (Auto) Eos # (Auto) Baso # (Auto) Nucleated RBC % (a uto) Nucleated RBCs # Sodium 139 Potassium 4.5 Chloride 105 Carbon Dioxide 24 Anion Gap 14.5 BUN 14 Creatinine 0.7 GFR Calculation 98.3 Glucose 90 Calculated Osmolal ity 284 L Uric Acid 7.1 H Calcium 9.5 Total Bilirubin 0.2 AST 36 H ALT 38 H Alkaline Phosphata se 156 H Total Protein 5.3 L Albumin 3.0 L Globulin 2.3 Urine Color Urine Appearance Urine pH Ur Specific Gravit y Urine Protein Urine Glucose (UA) Urine Ketones Urine Blood Urine Nitrate Urine Bilirubin Urine Urobilinogen Ur Leukocyte Xiao ase Urine RBC Urine WBC Ur Squamous Epith Cells Urine Bacteria Hyaline Casts U Random Total Pro tein 269 Urine Creatinine 97 Protein/Creatinin Ratio 2.77 10/19/19 10/19/19 13:35 13:35 WBC 13.4 H RBC 3.50 L Hgb 10.4 L Hct 31.1 L MCV 88.9 MCH 29.7 MCHC 33.4 RDW 12.0 L Plt Count 234 MPV 11.1 H Neut % (Auto) 75.2 Lymph % (Auto) 15.2 Jay % (Auto) 7.5 Eos % (Auto) 1.3 Baso % (Auto) 0.2 Neut # (Auto) 10.1 H Lymph # (Auto) 2.0 Jay # (Auto) 1.0 H Eos # (Auto) 0.2 Baso # (Auto) 0.0 Nucleated RBC % (a uto) 0 Nucleated RBCs # 0.0 Sodium Potassium Chloride Carbon Dioxide Anion Gap BUN Creatinine GFR Calculation Glucose Calculated Osmolal ity Uric Acid Calcium Total Bilirubin AST ALT Alkaline Phosphata se Total Protein Albumin Globulin Urine Color Yellow Urine Appearance Clear Urine pH 7 Ur Specific Gravit y 1.005 Urine Protein 3+ H Urine Glucose (UA) Norm Urine Ketones Negative Urine Blood Neg Urine Nitrate Negative Urine Bilirubin Neg Urine Urobilinogen Norm Ur Leukocyte Xiao ase 2+ H Urine RBC None Urine WBC 5-10 H Ur Squamous Epith Cells 5-10 H Urine Bacteria 1+ H Hyaline Casts 0-4 H U Random Total Pro tein Urine Creatinine Protein/Creatinin Ratio Vitals: Last Vital Signs Temp 98.2 F 10/19/19 13:30 Pulse 88 10/19/19 16:31 Resp 15 10/19/19 13:30 BP 0/0 10/19/19 16:37 TS Medications Medications Home Medications PNV [id number]#[id number] fumarate-FA [] 1 tab PO DAILY 05/07/19 [History Confirmed 09/29/19] ondansetron 4 mg PO Q6H PRN #14 tab 05/07/19 [Rx Confirmed 09/29/19] Active Medications Betamethasone Acet/Betameth SodPhos (Celestone Soluspan) 12 mg IM Q24H [facility] Stop: 10/20/19 13:31 Last Admin: 10/19/19 14:03 Dose: 12 mg Documented by: Calcium Gluconate (Calcium Gluconate) 1 gm IVP ONCE PRN PRN Reason: Reversal of Magnesium Sulfate Dextrose/Lactated Ringer's (Dextrose 5%-Lactated Ringers) 1,000 mls @ 125 mls/hr IV .Q8H [facility] Last Admin: 10/19/19 15:59 Dose: 125 mls/hr Documented by: Magnesium Sulfate (Magnesium Sulfate Premix) 20 gm in 500 mls @ 50 mls/hr IV .Q10H [facility] Last Admin: 10/19/19 16:21 Dose: 50 mls/hr Documented by: Discharge Plan Discharge Patient Disposition: Home, Self-Care Prescriptions: No Action PNV cmb#95-ferrous fumarate-FA [] 28 mg iron- 800 mcg Tablet 1 tab PO DAILY RF: 0 ondansetron 4 mg tablet,disintegrating 4 mg PO Q6H PRN (Reason: nausea and vomiting) Qty: 14 RF: 0 Activity: Bedrest Activity Restrictions/Additional Instructions: Transfer to [facility] via ambulance Transfer Attestations Time Spent in Transfer Care*: greater than 30 min Specific Discharge Activities: Specific discharge activities: educating patient, discussing with pcp/other providers and evaluating patient/reviewing data Quality Metrics Clinical Quality Measures: During this hospital stay, did patient experience: None Coding Level of Care Code Acute Turner And Former Automatic for Chg Fwd Diagnoses 32 weeks gestation of Z3A.32 Pre-eclampsia affecting , antepartum O14.90
== END 2019-10-19 18:04 | disposition home or self-care (01) ==
LOC: OPOB 13:14 → OBGYN 13:14
PROVIDERS: PCP Family Medicine; Visit Provider Family Medicine
DX: O14.90 Unspecified pre-eclampsia, unspecified trimester (principal); Z3A.32 32 weeks gestation of pregnancy
CPT/HCPCS: 12345; 36415; 51702; 59025; 76815; 80053; 81001; 82570; 84156; 84550; 85025; 96372; 99211; J0702; J3475

== ENCOUNTER → 2020-02-16 11:52 | Outpatient (BNVA) | payer OTHER, MEDICAID, SELFPAY | PROVIDERS: PCP Family Medicine; Visit Provider Obstetrics & Gynecology | DX: Z87.42 Personal history of other diseases of the female genital tract (principal) | CPT/HCPCS: 88175 ==

== ENCOUNTER → 2020-02-23 13:41 | Outpatient (BNVA) | payer OTHER, MEDICAID, SELFPAY | PROVIDERS: PCP Family Medicine; Visit Provider Psychiatry & Neurology Psychiatry | DX: F41.1 Generalized anxiety disorder (principal); F33.1 Major depressive disorder, recurrent, moderate | CPT/HCPCS: 99204 ==

== ENCOUNTER → 2021-05-29 08:58 | Outpatient (BNVA) | payer OTHER, MEDICAID, SELFPAY | PROVIDERS: Visit Provider Obstetrics & Gynecology | DX: R10.2 Pelvic and perineal pain (principal) | CPT/HCPCS: 76830 ==

== ENCOUNTER → 2021-06-25 08:49 | Outpatient (BNVA) | payer OTHER, MEDICAID, SELFPAY | PROVIDERS: Referring Provider Nurse Practitioner Family; Visit Provider Podiatrist Foot & Ankle Surgery | DX: M21.611 Bunion of right foot (principal); M21.612 Bunion of left foot; M21.621 Bunionette of right foot; M21.622 Bunionette of left foot; M79.671 Pain in right foot; M79.672 Pain in left foot | CPT/HCPCS: 73630 ==

== ENCOUNTER → 2021-12-24 14:45 | Outpatient (BNVA) | payer OTHER, MEDICAID, SELFPAY | PROVIDERS: Visit Provider Obstetrics & Gynecology | DX: N76.0 Acute vaginitis (principal); B37.3 Candidiasis of vulva and vagina | CPT/HCPCS: 87491; 87591; 87661 ==

== ENCOUNTER → 2021-12-25 11:23 | Outpatient (BNVA) | payer OTHER, SELFPAY | PROVIDERS: Visit Provider Obstetrics & Gynecology | DX: R10.2 Pelvic and perineal pain (principal) | CPT/HCPCS: 76830 ==

== ENCOUNTER 2022-05-02 12:56 | Outpatient (CLI) | payer OTHER, MEDICAID, SELFPAY | END 2022-05-02 12:57 | disposition home or self-care (01) | LOC: LAB 13:00 | PROVIDERS: Visit Provider Obstetrics & Gynecology | DX: N92.6 Irregular menstruation, unspecified (principal) | CPT/HCPCS: 36415; 84702 ==

== ENCOUNTER → 2022-10-21 08:58 | Outpatient (BNVA) | payer OTHER, MEDICAID, SELFPAY | PROVIDERS: Visit Provider Obstetrics & Gynecology | DX: Z32.00 Encounter for pregnancy test, result unknown (principal) | CPT/HCPCS: 84702 ==

== ENCOUNTER → 2023-04-03 10:17 | Outpatient (BNVA) | payer OTHER, MEDICAID, SELFPAY | PROVIDERS: Visit Provider Obstetrics & Gynecology | DX: O26.90 Pregnancy related conditions, unspecified, unspecified trimester (principal); Z3A.00 Weeks of gestation of pregnancy not specified | CPT/HCPCS: 81025 ==

== ENCOUNTER → 2023-05-21 09:55 | Outpatient (BNVA) | payer OTHER, SELFPAY | PROVIDERS: PCP Clinical Nurse Specialist Adult Health; Visit Provider Family Medicine | DX: F41.1 Generalized anxiety disorder (principal) | CPT/HCPCS: 80053; 84439; 84443; 85025 ==

== ENCOUNTER 2024-06-03 10:21 | Outpatient (CLI) | payer OTHER, SELFPAY ==
--- NOTE | 2024-06-03 10:30 | US_ITS ---
WS: [id number] Complete ABDOMINAL ULTRASOUND HISTORY: abdominal pain COMPARISON: None available. Liver: 14.4 cm in length. Normal size liver and echogenicity. No bile duct dilatation or mass. Portal Vein: Normal hepatopetal flow with monophasic waveform. Gallbladder: Normally distended gallbladder with no stones or wall thickening. CBD: 0.2 cm Pancreas: Normal size and echogenicity. Right kidney: 9.6 cm x 3.5 x 4.1 cm. Cortex:1.0 cm. Normal size and echogenicity. No hydronephrosis or mass. Left kidney: 9.7 cm x 5.0 cm x 4.6 cm. Cortex: 1.1 cm. Normal size and echogenicity. No hydronephrosis or mass. Spleen: 8.5 cm. Normal size and echogenicity. Aorta and IVC: Unremarkable abdominal aorta and IVC. US/US abdomen complete* [id number] Impression: Normal complete abdomen ultrasound.
== END 2024-06-03 10:22 | disposition home or self-care (01) ==
PROVIDERS: PCP Family Medicine; Visit Provider Family Medicine
DX: R10.33 Periumbilical pain (principal)
CPT/HCPCS: 76700

== ENCOUNTER 2024-10-14 16:20 | Outpatient (CLI) | payer OTHER, SELFPAY ==
--- NOTE | 2024-10-14 16:35 | XR_ITS ---
WS: [id number] Left hand, 3 views, 10/14/2024 Clinical Data: L metacarpal pain Comparison: None. Findings: No fractures or dislocations are seen. The soft tissues are unremarkable. The joint spaces are normal XR/XR hand LT min 3V* [id number] Impression: Negative left hand.
== END 2024-10-14 16:21 | disposition home or self-care (01) ==
PROVIDERS: PCP Family Medicine; Visit Provider Family Medicine
DX: M77.8 Other enthesopathies, not elsewhere classified (principal)
CPT/HCPCS: 73130

== ENCOUNTER → 2025-01-21 11:10 | Outpatient (BNVA) | payer OTHER, SELFPAY | PROVIDERS: PCP Family Medicine; Visit Provider Nurse Practitioner Psychiatric/Mental Health | DX: Z79.899 Other long term (current) drug therapy (principal) | CPT/HCPCS: 80053; 80061; 82306; 83036 ==

== ENCOUNTER → 2025-04-05 11:34 | Outpatient (BNVA) | payer SELFPAY | PROVIDERS: PCP Family Medicine; Visit Provider Nurse Practitioner Psychiatric/Mental Health | DX: Z76.89 Persons encountering health services in other specified circumstances (principal) | CPT/HCPCS: 84703 ==